=== PATIENT | male | born 1980 | race Two or more races ===

== ENCOUNTER 2016-08-21 13:17 | Emergency (ER) | payer OTHER ==
--- NOTE | ~2016-08-21 | EKG ---
PATIENT: MIRIAM SANZ UNIT #: [id number] Ventricular Rate: 79 BPM Atrial Rate: 79 BPM P-R Interval: 180 ms QRS Duration: 86 ms Q-T Interval: 338 ms QTC Calculation(Bezet): 387 ms P Brady: -10 degrees Calculated R Brady: 37 degrees Calculated T Brady: 22 degrees Diagnosis Line: Normal sinus rhythm Diagnosis Line: Normal ECG Diagnosis Line: No previous ECGs available Diagnosis Line: Confirmed by JULES SAUCEDA MD ([id number]) on 08/31/2016 Diagnosis Line: 7:56:53 PM INTERPRETING MD: SOHAIL RUIZ
[~2016-08-21 13:17] MED LIST: COLACE; NO MEDICATIONS; PROCTOFOAM-HC10 G1
[2016-08-21 13:30] LABS: URINE APPEARANCE CLEAR; URINE BLOOD TRACE-LYSED (NEG); URINE COLOR AMBER; URINE GLUCOSE NEG (NORM); URINE KETONE NEG (NEG); URINE LEUKOCYTE ESTERASE NEG (NEG); URINE NITRATE POS (NEG); URINE PH 5.5 (5-8); URINE PROTEIN 1+ (NEG); URINE SOURCE CLEAN CATCH; URINE SPECIFIC GRAVITY >=1.030 (1.003-1.035)
[2016-08-21 13:31] LABS: MICRO INDICATED? YES; URINE BILIRUBIN NEG (NEG)
[2016-08-21 13:33] LABS: CULTURE INDICATED? YES; URINE BACTERIA 1+ (NEG); URINE GRANULAR CAST 0-2 /[HPF]; URINE HYALINE CAST 0-2 /[HPF]; URINE MUCUS PRESENT; URINE RBC 0-2 /[HPF] (0-2); URINE SQUAMOUS EPITHELIAL CELL OCCAS /[HPF]; URINE WBC 0-2 /[HPF] (0-5)
[2016-10-01] MEDS ORDERED: HYDROCODON-ACE1 EAC9 PO (18:15)
== END 2016-08-21 13:47 | disposition home or self-care (01) ==
LOC: SED 13:17
PROVIDERS: Emergency Medicine
DX: R11.0 Nausea (principal); R19.7 Diarrhea, unspecified; R10.9 Unspecified abdominal pain; R42 Dizziness and giddiness; F17.210 Nicotine dependence, cigarettes, uncomplicated
CPT/HCPCS: 36415; 81003; 87086; 93005; 99283; J2405

== ENCOUNTER 2016-09-30 11:12 | Emergency (ER) | payer OTHER ==
--- NOTE | ~2016-09-30 | CT2 ---
[facility] A Service of [facility] RADIOLOGY TEXT RESULTS PATIENT: MIRIAM SANZ LOCATION: [facility] : [birth year] UNIT #: [id number] AGE: [address]: Fiorella Oglesby SEX: M ORDER DR: [id number] [place] [id number] MR#: [id number] Acc #: [id number] NAME: MIRIAM SANZ : 1980 SEX: M STUDY DATE/TIME: 09/30/2016 12:26 UNIT: SED ROOM: STUDY DESCRIPTION: CT Abd and Pelv W Cont Attending Physician: Fiorella Oglesby Pa-C Referring Physician: Fiorella Oglesby Pa-C Ordering Physician: Fiorella Oglesby Pa-C Primary Care Physician: Primary Care Physician No MEDICAL IMAGING REPORT This report is preliminary unless electronic signature is present. EXAM CT abdomen and pelvis with contrast INDICATION Right lower quadrant abdominal pain beginning today with nausea and vomiting. PROCEDURE Contrast-enhanced CT of the abdomen and pelvis, 100 mL of Isovue-370. TECHNIQUE This CT exam was performed with one or more of the following radiation dose reduction techniques: automatic exposure control, adjustment of mA and/or kV according to patient size, and iterative reconstruction. COMPARISON None FINDINGS ABDOMEN WITH CONTRAST: Included lung bases are clear. The study is mildly motion degraded. The liver measures 19.2 cm. No appreciable liver mass. The spleen, kidneys, adrenal glands, pancreas and gallbladder are unremarkable. The bowel loops are nondilated. The appendix is dilated and inflamed. The appendix measures up to 9.0 mm in diameter with a moderate amount of inflammatory change. No evidence for an abscess. There is a periappendiceal node that measures 9.0 mm and is presumed to be reactive. PELVIS WITH CONTRAST: There is asymmetric enlargement and low attenuation in the right seminal vesicle measuring up to 2.7 cm. No pelvic fluid. No aggressive appearing bone lesion. [facility] A Service of [facility] RADIOLOGY TEXT RESULTS PATIENT: MIRIAM SANZ LOCATION: [facility] : [birth year] UNIT #: [id number] AGE: [address]: Fiorella Oglesby SEX: M ORDER DR: IMPRESSION 1. [id number] acute appendicitis. No evidence for an abscess or rupture. 2. Asymmetric enlargement and low attenuation of the right seminal vesicle. Possibilities include an underlying seminal vesicle cyst or possibly infection. Possibility of a mass is not excluded but would be rare. Recommend evaluation with pelvic MRI with and without contrast. 3. Findings were discussed with Fiorella Oglesby at [facility] at time of this dictation. 1. Dictated by... Steve Duque M.D. THIS IS AN ELECTRONICALLY VERIFIED REPORT Steve Duque M.D. at 10/04/2016 7:21 AM Ramesh TD: 09/30/2016 15:46 JOB #: [id number] MEDICAL IMAGING REPORT Page 1 of 1
[2016-09-30 11:35] LABS: BASOPHIL# 0.1 X10e3 (0-0.3); BASOPHIL% 0.6 % (0-2.5); DIFF IND NO; EOSINOPHIL# 0.1 X10e3 (0-0.7); EOSINOPHIL% 0.6 % (0.0-7.0); HEMATOCRIT 47.4 % (38.0-50.0); HEMOGLOBIN 16.3 gm/dL (13.0-16.0); LYMPHOCYTE% 10.8 % (17.0-45.0); MEAN CELL VOLUME 100.5 FL (83-96); MEAN CORPUSCULAR HEMOGLOBIN 34.6 PG (28-34); MEAN CORPUSCULAR HGB CONC 34.5 g/dL (30-36); MEAN PLATELET VOLUME 7.5 FL (6.5-11.5); MONOCYTE# 0.6 X10e3 (0-1.0); MONOCYTE% 3.4 % (3.0-12.0); NEUTROPHIL% 84.6 % (40-75); PLATELET COUNT 253 X10e3 (140-420); RED BLOOD COUNT 4.72 X10e (3.90-5.60); RED CELL DISTRIBUTION WIDTH 13.2 % (11.0-15.5); WHITE BLOOD COUNT 18.9 X10e3 (4.0-10.5)
[2016-09-30 12:07] LABS: ALBUMIN SERUM 4.5 g/dL (3.5-5.0); BILIRUBIN, DIRECT 0.2 mg/dL (0.0-0.2); BILIRUBIN,INDIRECT 0.1 mg/dL (0.0-0.9); BILIRUBIN,TOTAL 0.3 mg/dL (0.2-2.0); BUN/CREATININE RATIO 16.25; CALCIUM SERUM 9.3 mg/dL (8.4-10.2); CREATININE SERUM 0.8 mg/dL (0.6-1.4); GLOM FILT RATE Estimated 116.6 mL/min (>60); POTASSIUM 3.2 mmol/L (3.5-5.1); PROTEIN TOTAL SERUM 7.9 g/dL (6.0-8.3)
[2016-10-01] MEDS ORDERED: HYDROCODON-ACE1 EAC9 PO (18:15)
== END 2016-09-30 14:13 | disposition left against medical advice (07) ==
LOC: SED 11:12 → CED 12:16 → SED 12:16
PROVIDERS: Physician Assistant
DX: K35.80 Unspecified acute appendicitis (principal); F17.210 Nicotine dependence, cigarettes, uncomplicated
CPT/HCPCS: 36415; 74177; 80048; 80076; 82150; 83690; 85025; 88304; 96365; 96375; 99284; J0330; J1885; J2270; J2405; J2543; J2710; Q9967

== ENCOUNTER 2016-10-27 16:53 | Emergency (ER) | payer OTHER ==
[~2016-10-27 16:53] MED LIST changes: +HYDROCODON-ACE1 EAC9 PO
[2016-10-27] MEDS ORDERED: NO MEDICATIONS (17:04)
== END 2016-10-27 17:43 | disposition home or self-care (01) ==
LOC: SED 16:53
DX: L02.01 Cutaneous abscess of face (principal); F17.210 Nicotine dependence, cigarettes, uncomplicated; Z90.89 Acquired absence of other organs
CPT/HCPCS: 99282

== ENCOUNTER 2016-10-30 16:09 | Emergency (ER) | payer OTHER ==
[2016-10-30 16:51] LABS: URINE SOURCE CLEAN CATCH
[2016-10-30 16:53] LABS: URINE APPEARANCE CLEAR; URINE BILIRUBIN NEG (NEG); URINE BLOOD NEG (NEG); URINE COLOR YELLOW; URINE GLUCOSE NEG (NORM); URINE KETONE NEG (NEG); URINE LEUKOCYTE ESTERASE NEG (NEG); URINE NITRATE NEG (NEG); URINE PROTEIN NEG (NEG); URINE SPECIFIC GRAVITY <=1.005 (1.003-1.035); URINE UROBILINOGEN 0.2 MG/DL (NORM)
[2016-10-30 17:04] LABS: MICRO INDICATED? NO
[2016-10-30 17:17] LABS: BASOPHIL% 0.5 % (0-2.5); EOSINOPHIL# 0.1 X10e3 (0-0.7); EOSINOPHIL% 0.9 % (0.0-7.0); HEMATOCRIT 45.8 % (38.0-50.0); HEMOGLOBIN 15.8 gm/dL (13.0-16.0); LYMPHOCYTE# 1.4 X10e3 (1.0-3.5); LYMPHOCYTE% 19.3 % (17.0-45.0); MEAN CELL VOLUME 101.7 FL (83-96); MEAN CORPUSCULAR HGB CONC 34.5 g/dL (30-36); MONOCYTE# 0.5 X10e3 (0-1.0); MONOCYTE% 6.5 % (3.0-12.0); NEUTROPHIL# 5.1 X10e3 (1.5-7.1); NEUTROPHIL% 72.8 % (40-75); PLATELET COUNT 208 X10e3 (140-420); RED BLOOD COUNT 4.51 X10e (3.90-5.60); RED CELL DISTRIBUTION WIDTH 14.2 % (11.0-15.5); WHITE BLOOD COUNT 7.1 X10e3 (4.0-10.5)
[2016-10-30 17:18] LABS: DIFF IND NO
[2016-10-30 17:35] LABS: BILIRUBIN,TOTAL 0.4 mg/dL (0.2-2.0); CALCIUM SERUM 9.2 mg/dL (8.4-10.2); CREATININE SERUM 1.5 mg/dL (0.6-1.4); GLOM FILT RATE Estimated 59.9 mL/min (>60); POTASSIUM 4.2 mmol/L (3.5-5.1); PROTEIN TOTAL SERUM 7.1 g/dL (6.0-8.3)
[2016-10-30] MEDS ORDERED: BENTYL20 MG PO (18:10)
[2016-10-30] MEDS ORDERED: ZOFRAN ODT4 MG PO (18:11)
== END 2016-10-30 18:11 | disposition home or self-care (01) ==
LOC: SED 16:09
PROVIDERS: Physician Assistant
DX: B34.9 Viral infection, unspecified (principal); R11.2 Nausea with vomiting, unspecified; R19.7 Diarrhea, unspecified; I10 Essential (primary) hypertension; F17.210 Nicotine dependence, cigarettes, uncomplicated; Z79.899 Other long term (current) drug therapy
CPT/HCPCS: 36415; 80053; 81003; 82150; 83690; 85025; 96374; 96375; 99284; C9113; J0500; J2405